=== PATIENT | female | born 1960 | race African-American/Black ===

== ENCOUNTER → 2021-12-11 | Day surgery (SDC) | payer MEDICARE, OTHER ==
[~2021-12-11] MED LIST: BENADRYL25 M1 PO; FENTANYL CITRATE/PF 100MCG/2 ML INJ ONE; HAIR SKIN NAIL1 EACH PO; LORATADINE10 MG PO; MIDAZOLAM HCL 2 MG/2 ML VIAL ONE; ONDANSETRON HCL INJ 2MG/ML 2ML 2 MG/ML VIAL ONE; OR PHACO EYE KIT ONE; POVIDONE IODINE 0.05% 0.05 % ML PO ONE; PREOP PHACO EYE KIT ONE; PROPOFOL IV EMULSION 10 MG/ML 20 ML VIAL ONE
[2021-12-11 16:40] VITALS: BP 147/99
== END | disposition home or self-care (01) ==
LOC: OR 12:45
PROVIDERS: ATTEND Ophthalmology
DX: H25.12 Age-related nuclear cataract, left eye (principal); J30.9 Allergic rhinitis, unspecified; B19.20 Unspecified viral hepatitis C without hepatic coma; F17.210 Nicotine dependence, cigarettes, uncomplicated; Z01.812 Encounter for preprocedural laboratory examination; Z20.822 Contact with and (suspected) exposure to COVID-19
CPT/HCPCS: 66984; J2250; J2405; J2704; J3010; U0002; V2632